=== PATIENT | male | born 1975 | race Caucasian/White ===

== ENCOUNTER 2016-11-11 08:59 | Emergency (ER) | payer OTHER, BC ==
[~2016-11-11] VITALS: Ht 182.9 cm; Wt 82.4 kg
[~2016-11-11 08:59] MED LIST: TRAZ50TA35 PO; UNABLE
[2016-11-11 09:09] VITALS: Ht 182.9 cm; Wt 82.4 kg
[2016-11-11] MEDS ORDERED: XYLOCAINE 1%/SOD BICARB 20 ML VIAL INFIL ONE (09:30)
[2016-11-11] MEDS ORDERED: BUPIVACAINE 0.5 % 5 MG/1 ML MPF 30ML VIAL INFIL ONE (09:30)
--- NOTE | 2016-11-11 09:38 | EMERGENCY ROOM VISIT NOTE ---
ED Visit Note First contact with patient: 09:08 CHIEF COMPLAINT: Finger laceration HISTORY OF PRESENT ILLNESS: This 40-year-old male patient presents to the emergency department ambulatory after cutting the right third finger at work when he was using a pocketing tool and a clamp cut the end of his right third finger. The patient states that it caused his nail to fall off. The bleeding has not stopped. Denies weakness or numbness of the finger. The patient has full range of motion of the fingers. He rates his pain 8/10.. The patient denies any other injuries. The patient's tetanus shot is up to date. REVIEW OF SYSTEMS: A 6 system review of systems was completed with positives and pertinent negatives listed in the HPI. ALLERGIES: No known drug allergies MEDICATIONS: Trazodone PMH: Patient denies SOCIAL HISTORY: The patient lives locally. He is employed. Does not smoke. PHYSICAL EXAM: Vital Signs: Reviewed Nurse's notes, vital signs stable. GENERAL : This is a 40-year-old male, in no acute distress, well developed, well nourished. SKIN: There is a less than 1 cm long stellate type laceration on the distal aspect of the right third finger involving the nail bed. The edges do not significantly gape apart with traction. There is no foreign material in the wound and it looks clean. There is minimal bleeding. No deep structures such as tendons, bones, or nerves are seen in the base of the wound. Extension and flexion of the finger is full and strong. Full range of motion of the wrist and other fingers. Capillary refill less than 2 seconds. Normal sensation to light and sharp touch. EMERGENCY DEPARTMENT COURSE: I examined the patient. Using sterile technique the wound was cleaned with Betadine. 6 ml of 1% buffered lidocaine/0.5% marcaine was used to perform a digital block to anesthetize the patient. The area was sterilely draped. Once the patient was numb, the wound was copiously irrigated under pressure with sterile saline. The wound was explored and there were no deep structures such as tendons, bone, or ligaments present. The laceration was repaired using simple interrupted 6-0 fast absorbing sutures. The patient tolerated the procedure well. The bleeding stopped. The area was cleaned with sterile saline and dressed with bacitracin ointment and bandage. I recommended replacing the nail to aid in healing to keep the nail fold open and provide a template for the new nail to grow. He refused and stated he didn' t care about losing the nail and it not growing back. The patient was discharged home in good condition. DIAGNOSIS: Finger laceration DISCHARGE INSTRUCTIONS & TREATMENT: Keep wound clean and dry. Do not allow any crusting or dried blood to accumulate on sutures. The sutures will dissolve on their own. Keep a nonstick dressing on when and up and about. Wear the splint until seen by orthopedics. Keflex as prescribed, until finished to help prevent infection. Contact orthopedics today to schedule a follow-up appointment for further evaluation and management. It is likely that the nail would not grow back or may grow back deformed. Return with any redness, swelling, warmth, fevers. Current/Historical Medications Scheduled Cephalexin Monohydrate (Keflex), 500 MG PO TID Trazodone Hcl (Trazodone), 50 MG PO HS Allergies Coded Allergies: No Known Allergies (Unverified , 11/11/16) Vital Signs Date Time Temp Pulse Resp B/P (MAP) Pulse Ox O2 Delivery O2 Flow Rate FiO2 11/11/16 11:00 37.0 60 16 113/93 97 11/11/16 11:00 60 16 97 Room Air 11/11/16 09:09 37.0 54 16 113/93 97 Room Air Medications Administered Medications (Trade) Dose Ordered Sig/Cecilia Route Start Time Stop Time Status Last Admin Dose Admin Bupivacaine HCl (Marcaine 0.5% MPF Inj) 30 ml NOW ONCE INFIL 11/11/16 09:30 11/11/16 09:31 DC 11/11/16 09:35 30 ML Lidocaine HCl (Buffered Lidocaine 1% Inj) 20 ml NOW ONCE INFIL 11/11/16 09:30 11/11/16 09:31 DC 11/11/16 09:35 20 ML Departure Information Impression Primary Impression: Laceration Dispostion Home / Self-Care Condition GOOD Prescriptions Cephalexin Monohydrate (Keflex) 500 Mg Cap 500 MG PO TID for 7 Days, #21 CAP Prov: Yenny Chacon PA-C 11/11/16 Referrals Isaac Marques M.D.([facility]) (PCP) Jeremy Sanchez MD Patient Instructions ED Avulsion Nail Complete, [facility] Additional Instructions Keep wound clean and dry. Do not allow any crusting or dried blood to accumulate on sutures. The sutures will dissolve on their own. Keep a nonstick dressing on and up and about. Wear the splint until seen by orthopedics. Keflex as prescribed, until finished to help prevent infection. Contact orthopedics today to schedule a follow-up appointment for further evaluation and management. It is likely that the nail would not grow back or may grow back deformed. Return with any redness, swelling, warmth, fevers.
--- NOTE | 2016-11-11 09:54 | DIAGNOSTIC IMAGING REPORT ---
RIGHT FINGER(S) MIN 2 VIEWS ROUTINE CLINICAL HISTORY: right third finger injury Right trauma. Pain. COMPARISON: None. DISCUSSION: Soft tissue disruption overlying the distal phalanx third finger. Possible nondisplaced cortical fracture tuft distal phalanx. No evidence for dislocation. IMPRESSION: Soft tissue disruption overlying the distal phalanx. Possible nondisplaced cortical fracture tuft distal phalanx. The above report was generated using voice recognition software. It may contain grammatical, syntax or spelling errors. Electronically signed by: Johny Castellano M.D. 11/11/2016 9:53 AM Dictated Date/Time: 11/11/2016 9:51 AM
[2016-11-11] MEDS ORDERED: CEPH500C PO (10:45)
[2016-11-11 11:00] VITALS: BP 113/93; PULSE 60; TEMP 37; O2SAT 97
== END 2016-11-11 11:00 | disposition home or self-care (01) ==
LOC: C.EDB 08:59 → C.EDA 11:00
DX: S61.312A Laceration without foreign body of right middle finger with damage to nail, initial encounter (principal); W27.8XXA Contact with other nonpowered hand tool, initial encounter; Y99.0 Civilian activity done for income or pay